=== PATIENT | male | born 1995 | race African-American/Black ===

== ENCOUNTER 2024-03-23 00:42 | Emergency (ER) | payer SELFPAY ==
[2024-03-23 00:53] VITALS: BP 139/98; RESP 18; BMI 32.3
[2024-03-23] MEDS ORDERED: ACETAMINOPHEN 500 MG TABLET (FP) ONE (01:17)
[2024-03-23] MEDS: ACETAMINOPHEN 500 MG TABLET (FP) PO ONE (01:18)
[2024-03-23 01:58] LABS: THROAT:GRP A STREP NOT DETECTED (NOTDETECTED)
[2024-03-23 02:19] VITALS: TEMP 99.6
[2024-03-23 02:37] VITALS: PULSE 118
== END 2024-03-23 02:34 | disposition home or self-care (01) ==
LOC: JER 00:42
DX: R50.9 Fever, unspecified (principal); J02.9 Acute pharyngitis, unspecified; R05.9 Cough, unspecified; R11.0 Nausea; R53.83 Other fatigue; B34.9 Viral infection, unspecified; Z20.822 Contact with and (suspected) exposure to COVID-19
CPT/HCPCS: 0241U-QW; 87651; 99283-25

== ENCOUNTER 2025-05-09 20:06 | Emergency (ER) | payer OTHER ==
[2025-05-09 20:18] VITALS: BP 133/85; PULSE 85; RESP 18; TEMP 98.5; BMI 35.2
[2025-05-09] MEDS ORDERED: ACETAMINOPHEN INJECTION 100 ML ONE (21:04)
[2025-05-09] MEDS: ACETAMINOPHEN 1000 MG/100 ML BAG IVPB ONE (21:15)
[2025-05-09 21:46] LABS: URINE APPEARANCE CLEAR; URINE BILIRUBIN NEGATIVE (NEGATIVE); URINE COLOR YELLOW; URINE GLUCOSE (UA) NEGATIVE (NEGATIVE); URINE KETONE TRACE (NEGATIVE); URINE LEUK ESTERASE NEGATIVE (NEGATIVE); URINE NITRITE NEGATIVE (NEGATIVE); URINE PROTEIN NEGATIVE (NEGATIVE); URINE UROBILINOGEN 1.0 mg/dL (0.2-1.0)
[2025-05-09 21:47] LABS: MCHC 33.9 g/dl (32.3-36.5); MEAN CELL VOLUME 92.1 fl (79.0-92.2); MEAN PLT VOLUME 10.8 fl (9.4-12.4); RDW 11.9 % (12.0-15.6)
[2025-05-09 22:14] LABS: GLUCOSE,RANDOM 96.0 mg/dL (74-106); TOT PROT 8.0 g/dl (6.4-8.2)
[2025-05-09 22:15] LABS: CO2 25.0 mmol/L (21-32)
[2025-05-09 22:17] LABS: ALK PHOS 146.0 U/L (40-150)
[2025-05-09 22:19] LABS: SGOT/AST 43.0 U/L (5-34); SGPT/ALT 52.0 U/L (0-55)
[2025-05-09 22:20] LABS: CREATININE 0.83 mg/dL (0.55-1.3)
[2025-05-09 22:41] LABS: HCV DIAGNOSTIC IN-HOUSE W/RFLX NON-REACTIVE (NONREACTIVE)
[2025-05-09 23:32] LABS: HIV INTERPRETATION NEGATIVE (NEGATIVE)
== END 2025-05-09 23:40 | disposition home or self-care (01) ==
LOC: JER 20:06
PROC: 3E033NZ Introduction of Analgesics, Hypnotics, Sedatives into Peripheral Vein, Percutaneous Approach (ICD-10-PCS; principal; 2025-05-09)
DX: R10.11 Right upper quadrant pain (principal); R10.31 Right lower quadrant pain; R14.0 Abdominal distension (gaseous)
CPT/HCPCS: 36415; 74177-TC; 80053; 81003; 83690; 85025; 86803; 87086; 87389; 99285-25; Q9967